=== PATIENT | female | born 1985 | race Caucasian/White ===

== ENCOUNTER 2019-03-13 12:06 | Day surgery (SDC) | payer OTHER, SELFPAY ==
[2019-03-11 07:54] VITALS: BMI 48.9
--- NOTE | 2019-03-13 | PATH_ITS ---
[facility] Accession Number: [id number] . 01 Material submitted: . PART A: cervix - CERVIX - EXTERNAL PART B: endocervix - ENDOCERVICAL CURETTINGS PART C: cervix - CERVIX - INTERNAL . 01 Diagnosis: A. Uterine Cervix/External, LEEP Conization: High-grade squamous intraepithelial lesion (SISI-2 to SISI-3/moderate to severe squamous dysplasia). Negative for glandular dysplasia and invasive carcinoma. Surgical margins: High-grade squamous intraepithelial lesion involves the cauterized endocervical margin. Remaining margins are not involved. . B. Endocervix, Curettings: Benign endocervical tissue, negative for dysplasia and malignancy. . C. Uterine Cervix/Internal, LEEP Conization: Focal high-grade squamous intraepithelial lesion (SISI-2/moderate dysplasia) is present. Negative for glandular dysplasia and invasive carcinoma. Surgical margins: Negative for high-grade squamous intraepithelial lesion, see comment. [facility] 03/17/2019 1750 Local . 01 Comment: Part C: Microscopic examination reveals focal high-grade squamous intraepithelial lesion that approaches extremely close the cauterized endocervical margin; however, is not present at the endocervical margin. . 01 Electronically signed: . Ryan Hutson MD, Pathologist NPI- [id number] . 01 Gross description: . (A) Received in formalin, labeled cervix external, is an unoriented cervical excision (diameter-2.4 x 1.8 cm, 0.4 cm in depth) with correa-pink smooth shiny mucosa. No nodules, masses or lesions are identified. The possible endocervical margin is inked orange and the possible ectocervical and stromal margins are inked blue. Radially sectioned and entirely submitted in cassettes A1-A4. (B) Received in formalin, labeled endocervical curettings, are multiple fragments of red-brown tissue (0.7 x 0.6 by less than 0.1 cm in aggregate). Filtered and entirely submitted in cassette B1. (C) Received in formalin, labeled cervix internal, is an unoriented cervical excision (diameter-1.4 x 1.3 cm, 0.3 cm in depth) with correa-pink smooth shiny mucosa. No nodules, masses or lesions are identified. The possible endocervical margin is inked orange and the possible ectocervical and stromal margins are inked blue. Radially sectioned and entirely submitted in cassettes C1 and C2. ([id number]) /MRV 03/15/2019 2020 Local . 01 Pathologist provided ICD-10: D06.9 . 01 CPT . 882418, [id number], [id number] Performed at: 01 [facility] [address] [address] [place] [address] [address] [facility], [place], [place] [id number] MD Glenn Mohan MD Phone: [phone]
[2019-03-13] MEDS: LACTATED RINGERS 1,000 ML 100 ML IV (13:00)
--- NOTE | 2019-03-13 13:04 | SUR.OPER ---
Lithotomy on padded OR bed, head on pillow, arms secured on padded arm boards at <90 degrees abduction. Legs secured in padded yellow fins stirrups.
[2019-03-13 13:05] VITALS: BP 116/77; PULSE 74; RESP 16; TEMP 36.4; O2SAT 97; BMI 47.6
[2019-03-13 13:14] VITALS: BMI 47.6
[2019-03-13] MEDS: BUPIVACAINE 0.5% W/ EPI (PF) VIAL 30 ML INJ (13:44)
[2019-03-13] MEDS: POTASSIUM IODIDE/IODINE 473 ML SOLUTION TOP (13:45)
--- NOTE | 2019-03-13 14:04 | SUR.OPER ---
GLASSES TO PACU WITH PATIENT
--- NOTE | 2019-03-13 14:06 | PM.OP.1 ---
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 Slightly gaping introitus. Several areas of thickened white epithelium with punctation and early mosaicism at 1:00 and 5:00. as well as smaller areas at the squamocolumnar junction. Closure Type: not applicable Specimen(s): other (Ectocervical biopsy, endocervical biopsy, ECC) Estimated Blood Loss (mL): 5 Blood products transfused: none Procedure in detail: Patient was brought to the operating room she underwent general. She was placed in low stirrups. Colposcopy was performed. A speculum was placed in the vagina and the cervix was treated with ascetic acid. A coated bivalve speculum was placed into the vagina. The cervix was injected with 0.5% Marcaine with epinephrine. A coated single-tooth tenaculum was placed on the anterior lip of the cervix. The cervix was stained with Lugol's. The loop set at 60 W of cutting was used to remove the entire squamocolumnar junction. A slightly deeper section was taken of the endocervical canal. An ECC was performed. The tissue was cauterized external to the LEEP with ball cautery to extend the treatment zone. Monsel's was placed. The patient went to recovery room in good condition. Counts of instruments and sponges were correct. The tissue was sent for pathology. Complications: none Post-operative Condition: stable Disposition: same day surgery Plan for aftercare: Follow-up in 2 weeks. Treatment and follow-up based on biopsy results.
[2019-03-13 14:11] VITALS: BP 114/70; PULSE 74; RESP 12; TEMP 36.5; O2SAT 94
[2019-03-13 14:15] VITALS: BP 121/73; PULSE 75; RESP 10; O2SAT 94
[2019-03-13 14:20] VITALS: BP 134/82; PULSE 69; RESP 10; O2SAT 96
[2019-03-13 14:45] VITALS: BP 125/75; PULSE 58; RESP 16; TEMP 36.4; O2SAT 12
== END 2019-03-13 13:57 | disposition home or self-care (01) ==
PROVIDERS: Visit Provider Specialist
PROC: 0UBC7ZZ Excision of Cervix, Via Natural or Artificial Opening (ICD-10-PCS; CPT 57522; principal; 2019-03-13 13:30)
PROC: (CPT 57120; 2019-03-13 13:30)
DX: D06.9 Carcinoma in situ of cervix, unspecified (principal); R87.810 Cervical high risk human papillomavirus (HPV) DNA test positive
CPT/HCPCS: 57460; 58110; J1100; J1885; J2405; J2704; J3010